=== PATIENT | male | born 1945 | race Caucasian/White ===

== ENCOUNTER 2023-09-15 10:43 | Inpatient (IN) | payer MEDICARE, BC ==
[~2023-09-15] VITALS: Ht 188 cm; Wt 127.0 kg
[2023-09-15] VITALS (7 sets, daily range): BP systolic 98–137; BP diastolic 53–68; TEMP 97.8–98.5; O2SAT 97
[2023-09-15] MEDS ORDERED: IV NORMAL SALINE 1000 ML BAG IV ONE (11:00)
[2023-09-15 11:43] LABS: EOSINOPHILS % (AUTO) 1.8 % (0.0-7.0); LYMPHOCYTES # (AUTO) 2.8 K/uL (0.8-4.8)
[2023-09-15 11:46] LABS: BASOPHILS # (AUTO) 0.3 K/UL (0.0-0.2); BASOPHILS % (AUTO) 0.7 % (0.0-2.0); EOSINOPHILS # (AUTO) 0.8 K/uL (0.0-0.7); MEAN CORPUSCULAR HEMOGLOBIN 29.7 uug (23.8-33.4); MEAN CORPUSCULAR HGB CONC 33 g/dL (32.5-36.3); MEAN CORPUSCULAR VOLUME 89.2 fL (73.0-96.2); MONOCYTES # (AUTO) 19.9 K/uL (0.1-1.30); MONOCYTES % (AUTO) 42.5 % (0.0-11.0); PLATELET COUNT (AUTO) 96 K/uL (152-348); RED CELL DISTRIBUTION WIDTH 18.4 % (12.1-16.2)
[2023-09-15] MEDS ORDERED: LEVO50TA8 PO (11:52)
[2023-09-15] MEDS ORDERED: CAND16TA25 PO (11:52)
[2023-09-15] MEDS ORDERED: BUPR300T52 PO (11:52)
[2023-09-15] MEDS ORDERED: PANT40TA49 PO (11:52)
[2023-09-15] MEDS ORDERED: ALPR0.5T8 PO (11:52)
[2023-09-15] MEDS ORDERED: FURO-152 PO (11:52)
[2023-09-15] MEDS ORDERED: ATOR20TA PO (11:52)
[2023-09-15] MEDS ORDERED: DULO30CA2 PO (11:52)
[2023-09-15] MEDS ORDERED: ATEN50TA PO (11:52)
[2023-09-15 12:09] LABS: ALANINE AMINOTRANSFERASE 17 U/L (16-63); ALBUMIN 3.6 g/dL (3.4-5.0); ALKALINE PHOSPHATASE 51 U/L (50-136); ASPARTATE AMINOTRANSFERASE 29 U/L (15-37); BILIRUBIN,DIRECT 0.1 mg/dL (0.0-0.2); BILIRUBIN,TOTAL 0.8 mg/dL (0.2-1.0); CALCIUM 7.4 mg/dL (8.5-10.1); CARBON DIOXIDE 24 mmol/L (21-32); CHLORIDE 97 mmol/L (98-107); CREATININE 4.9 mg/dL (0.6-1.3); GLUCOSE 89 mg/dL (74-106); NT-PRO BNP 1565 pg/mL (0-125); POTASSIUM 4.4 mmol/L (3.5-5.1); SODIUM SERUM 131 mmol/L (136-145); TOTAL PROTEIN, SERUM 7.1 g/dL (6.4-8.2); UREA NITROGEN, BLOOD 54 mg/dL (7-18)
[2023-09-15 12:17] LABS: DIFFERENTIAL COMMENT 1; HEMATOCRIT 20.8 % (36.7-47.1); HEMOGLOBIN 6.9 g/dL (12.5-16.3); RED BLOOD CELL COUNT(AUTO) 2.34 MIL/uL (4.06-5.63); WHITE BLOOD COUNT (AUTO) 46.8 K/uL (3.6-10.2)
[2023-09-15] MEDS ORDERED: VANCOMYCIN IV 200 ML ONE (12:28)
[2023-09-15] MEDS ORDERED: CEFTRIAXONE /D5W 50ML IVPB **ER PYXIS IV ONE (12:28)
[2023-09-15] MEDS ORDERED: CEFTRIAXONE 1 G in IV DEXTROSE 5% 50 ML IV ONE (12:30)
[2023-09-15] MEDS ORDERED: VANCOMYCIN IV 1,000 MG in IV DEXTROSE 5% 250 ML IV ONE (12:30)
[2023-09-15] MEDS ORDERED: MAGNESIUM OXIDE 400 MG TABLET PO ONE (12:45)
[2023-09-15] MEDS ORDERED: MAGNESIUM OXIDE 400 MG TABLET ONE (13:03)
[2023-09-15] MEDS ORDERED: REMEDY ESSENTIAL ZINC PASTE 113 GM TP PRN (15:30)
[2023-09-15] MEDS ORDERED: ONDANSETRON 4 MG/2 ML VIAL IV PRN (15:30)
[2023-09-15] MEDS ORDERED: ACETAMINOPHEN 325 MG TABLET PO PRN (15:30)
[2023-09-15] MEDS ORDERED: IV NS 1000 ML 1,000 ML IV PRN (15:30)
[2023-09-15 15:45] LABS: *BILIRUBIN,URIN NEGATIVE (NEGATIVE); *BLOOD, URINE 3+ (NEGATIVE); *CLARITY,URINE CLEAR (CLEAR); *COLOR,URINE YELLOW (YELLOW); *KETONES,URINE NEGATIVE (NEGATIVE); *PROTEIN,URINE 1+ (NEGATIVE); *UROBILINOGEN,URINE 0.2 E.U./dl (NORMAL); LEUKOCYTE ESTERASE ,URINE NEGATIVE (NEGATIVE); NITRITE, URINE NEGATIVE (NEGATIVE); UGLUCOSE NEGATIVE (NEGATIVE)
[2023-09-15] MEDS: MAGNESIUM SULFATE/D5W 100 ML IV SCH ×3 (17:47→18:57)
[2023-09-15] MEDS ORDERED: VANCOMYCIN IV 500 MG in IV DEXTROSE 5% 100 ML IV ONE (18:00)
[2023-09-15 18:20] LABS: SQUAMOUS EPITHELIAL CELL,UR FEW /HPF (NONE SEEN); WBC,URINE 0-3 /HPF (0-3)
[2023-09-15 18:21] LABS: BACTERIA,URINE MODERATE /HPF (NONE SEEN)
[2023-09-15 19:30] LABS: LYMPHOCYTES % (MANUAL) 10 % (20-40); MONOCYTES % (MANUAL) 29 % (2-10); NEUTROPHILS % (MANUAL) 61 % (42-75)
[2023-09-15 19:31] LABS: ANISOCYTOSIS 2+; PLATELET ESTIMATE MARKED DECREASED
[2023-09-15] MEDS ORDERED: HOME MED MISCELLANEOUS PO ONE (20:45)
[2023-09-15] MEDS: ATORVASTATIN 20 MG TABLET PO SCH (21:08)
[2023-09-16 00:05] VITALS: BP 133/61; TEMP 98.5; O2SAT 95
[2023-09-16] MEDS: ALPRAZOLAM 0.5 MG TABLET PO PRN (00:42)
[2023-09-16 02:14] LABS: *OCCULT BLOOD STOOL NEGATIVE (NEGATIVE)
[2023-09-16 04:30] VITALS: BP 120/53; TEMP 98; O2SAT 96
[2023-09-16] MEDS: LEVOTHYROXINE SODIUM 50 MCG TABLET PO SCH (06:28)
[2023-09-16 06:51] LABS: BASOPHILS # (AUTO) 0.4 K/UL (0.0-0.2); BASOPHILS % (AUTO) 1.1 % (0.0-2.0); EOSINOPHILS # (AUTO) 0.9 K/uL (0.0-0.7); EOSINOPHILS % (AUTO) 2.6 % (0.0-7.0); LYMPHOCYTES # (AUTO) 2.8 K/uL (0.8-4.8); LYMPHOCYTES % (AUTO) 7.8 % (20.5-51.5); MEAN CORPUSCULAR HEMOGLOBIN 29.7 uug (23.8-33.4); MEAN CORPUSCULAR HGB CONC 33 g/dL (32.5-36.3); MEAN CORPUSCULAR VOLUME 89.7 fL (73.0-96.2); MONOCYTES # (AUTO) 14.5 K/uL (0.1-1.30); MONOCYTES % (AUTO) 40.2 % (0.0-11.0); NEUTROPHILS # (AUTO) 17.3 K/uL (1.8-8.9); NEUTROPHILS % (AUTO) 48.3 % (38.5-71.5); PLATELET COUNT (AUTO) 79 K/uL (152-348); RED CELL DISTRIBUTION WIDTH 17.8 % (12.1-16.2)
[2023-09-16 07:17] LABS: ALANINE AMINOTRANSFERASE 15 U/L (16-63); ALBUMIN 3.4 g/dL (3.4-5.0); ALKALINE PHOSPHATASE 60 U/L (50-136); ASPARTATE AMINOTRANSFERASE 17 U/L (15-37); BILIRUBIN,TOTAL 0.9 mg/dL (0.2-1.0); CARBON DIOXIDE 22 mmol/L (21-32); CHLORIDE 99 mmol/L (98-107); CREATININE 4.7 mg/dL (0.6-1.3); GLUCOSE 95 mg/dL (74-106); PHOSPHOROUS 6.6 mg/dL (2.5-4.9); POTASSIUM 4.6 mmol/L (3.5-5.1); SODIUM SERUM 134 mmol/L (136-145); TOTAL PROTEIN, SERUM 6.9 g/dL (6.4-8.2); UREA NITROGEN, BLOOD 56 mg/dL (7-18)
[2023-09-16 07:27] LABS: CALCIUM 7.4 mg/dL (8.5-10.1)
[2023-09-16] MEDS: NICOTINE 21 MG/24HR PATCH TD SCH (08:08)
[2023-09-16] MEDS ORDERED: [UNRECOGNIZED DRUG - OTHER] PO SCH ×2 (09:00→21:00)
[2023-09-16] MEDS ORDERED: VANCOMYCIN IV 1,000 MG in IV DEXTROSE 5% 250 ML IV ONE ×4 (09:00)
[2023-09-16 09:34] LABS: DIFFERENTIAL COMMENT 1; HEMATOCRIT 20.8 % (36.7-47.1); HEMOGLOBIN 6.9 g/dL (12.5-16.3); RED BLOOD CELL COUNT(AUTO) 2.32 MIL/uL (4.06-5.63); WHITE BLOOD COUNT (AUTO) 35.9 K/uL (3.6-10.2)
[2023-09-16 09:37] LABS: LYMPHOCYTES % (MANUAL) 0 % (20-40); NEUTROPHILS % (MANUAL) 0 % (42-75)
[2023-09-16] MEDS: CEFTRIAXONE 2 G in IV DEXTROSE 5% 100 ML IV SCH (11:03)
[2023-09-16 11:55] VITALS: BP_SYST 103; BP_SYST 118; BP_DIAS 50; BP_DIAS 55; TEMP 98; O2SAT 96; O2SAT 99
[2023-09-16] MEDS ORDERED: CEFTRIAXONE 1 G in IV DEXTROSE 5% 50 ML IV SCH (12:00)
[2023-09-16] MEDS ORDERED: DULO60CA45 PO (14:22)
[2023-09-16] MEDS ORDERED: LEVO5TAB29 PO (14:24)
[2023-09-16] MEDS ORDERED: ALLO100T56 PO (14:25)
[2023-09-16] MEDS ORDERED: FLUT1DIS28 IH (14:25)
[2023-09-16] MEDS ORDERED: ZOLP5TAB2 PO (14:26)
[2023-09-16 15:42] VITALS: BP 105/53; TEMP 98; O2SAT 99
[2023-09-16] MEDS ORDERED: LOPERAMIDE HCL 2 MG CAPSULE PO PRN (16:30)
[2023-09-16] MEDS ORDERED: LOPERAMIDE HCL 2 MG CAPSULE PO ONE (16:30)
[2023-09-16] MEDS ORDERED: ZOLPIDEM 5 MG TABLET PO PRN (17:45)
[2023-09-16 20:16] VITALS: BP 115/62; TEMP 97.7; O2SAT 97
[2023-09-16 20:30] LABS: *CREATININE,URINE 144.7 mg/dL (30-125); *URINE TOTAL PROTEIN RANDOM 148.4 mg/dL (<150/24HR)
[2023-09-16] MEDS: ATORVASTATIN 20 MG TABLET PO SCH (20:48)
[2023-09-16 20:54] LABS: *BILIRUBIN,URIN NEGATIVE (NEGATIVE); *BLOOD, URINE 3+ (NEGATIVE); *COLOR,URINE DARK YELLOW (YELLOW); *KETONES,URINE NEGATIVE (NEGATIVE); *PROTEIN,URINE 2+ (NEGATIVE); *UROBILINOGEN,URINE 0.2 E.U./dl (NORMAL); LEUKOCYTE ESTERASE ,URINE NEGATIVE (NEGATIVE); NITRITE, URINE NEGATIVE (NEGATIVE); UGLUCOSE NEGATIVE (NEGATIVE)
[2023-09-16 20:58] LABS: *CLARITY,URINE TURBID (CLEAR)
[2023-09-16 21:05] LABS: BACTERIA,URINE FEW /HPF (NONE SEEN); RBC,URINE TNTC /HPF (0-3); WBC,URINE 0-3 /HPF (0-3)
[2023-09-16 21:06] LABS: SQUAMOUS EPITHELIAL CELL,UR FEW /HPF (NONE SEEN); URINE AMORPHOUS URATE MODERATE /HPF
[2023-09-17 00:17] VITALS: BP 129/68; TEMP 97.7; O2SAT 97
[2023-09-17 04:00] VITALS: BP 123/50; TEMP 97.8; O2SAT 98
[2023-09-17 06:12] LABS: BASOPHILS # (AUTO) 0.4 K/UL (0.0-0.2); BASOPHILS % (AUTO) 1.1 % (0.0-2.0); EOSINOPHILS # (AUTO) 0.9 K/uL (0.0-0.7); EOSINOPHILS % (AUTO) 2.5 % (0.0-7.0); HEMATOCRIT 21.3 % (36.7-47.1); LYMPHOCYTES # (AUTO) 3.3 K/uL (0.8-4.8); LYMPHOCYTES % (AUTO) 9.4 % (20.5-51.5); MEAN CORPUSCULAR HEMOGLOBIN 29.8 uug (23.8-33.4); MEAN CORPUSCULAR HGB CONC 33 g/dL (32.5-36.3); MEAN CORPUSCULAR VOLUME 89.2 fL (73.0-96.2); MONOCYTES # (AUTO) 12.8 K/uL (0.1-1.30); MONOCYTES % (AUTO) 36.7 % (0.0-11.0); NEUTROPHILS # (AUTO) 17.6 K/uL (1.8-8.9); NEUTROPHILS % (AUTO) 50.3 % (38.5-71.5); PLATELET COUNT (AUTO) 76 K/uL (152-348)
[2023-09-17] MEDS: LEVOTHYROXINE SODIUM 50 MCG TABLET PO SCH (06:12)
[2023-09-17 06:27] LABS: DIFFERENTIAL COMMENT 1; HEMOGLOBIN 7.1 g/dL (12.5-16.3); RED BLOOD CELL COUNT(AUTO) 2.39 MIL/uL (4.06-5.63); WHITE BLOOD COUNT (AUTO) 34.9 K/uL (3.6-10.2)
[2023-09-17 06:30] LABS: ALANINE AMINOTRANSFERASE 20 U/L (16-63); ALBUMIN 3.5 g/dL (3.4-5.0); ALKALINE PHOSPHATASE 75 U/L (50-136); ASPARTATE AMINOTRANSFERASE 19 U/L (15-37); BILIRUBIN,TOTAL 0.9 mg/dL (0.2-1.0); CALCIUM 7.6 mg/dL (8.5-10.1); CARBON DIOXIDE 24 mmol/L (21-32); CHLORIDE 102 mmol/L (98-107); CREATINE KINASE, TOTAL 119 U/L (39-308); CREATININE 3.5 mg/dL (0.6-1.3); GLUCOSE 98 mg/dL (74-106); LACTATE DEHYDROGENASE 487 U/L (85-227); MAGNESIUM 1.6 mg/dL (1.8-2.4); PHOSPHOROUS 5.4 mg/dL (2.5-4.9); POTASSIUM 4.6 mmol/L (3.5-5.1); SODIUM SERUM 136 mmol/L (136-145); TOTAL PROTEIN, SERUM 7.3 g/dL (6.4-8.2); UREA NITROGEN, BLOOD 54 mg/dL (7-18); VANCOMYCIN,RANDOM 14.2 ug/mL (20.0-30.0)
[2023-09-17 06:54] LABS: IRON, SERUM 40 ug/dL (50-175)
[2023-09-17 08:00] VITALS: BP 121/56; TEMP 97.7
[2023-09-17] MEDS ORDERED: VANCOMYCIN IV 1,250 MG in IV DEXTROSE 5% 250 ML IV ONE (08:00)
[2023-09-17] MEDS: FLUTICASONE/VILANTEROL 1 EACH BLST.W.DEV INH SCH (08:56)
[2023-09-17] MEDS: DULOXETINE 30 MG CAPSULE.DR PO SCH (08:57)
[2023-09-17] MEDS: MAGNESIUM SULFATE/D5W 100 ML IV SCH ×2 (08:57→09:35)
[2023-09-17] MEDS: NICOTINE 21 MG/24HR PATCH TD SCH (08:58)
[2023-09-17] MEDS: ALLOPURINOL 100 MG TABLET PO SCH (08:58)
[2023-09-17] MEDS ORDERED: FLUTICASONE/SALMETEROL 250/50 INHALER IH SCH (09:00)
[2023-09-17] MEDS ORDERED: VANCOMYCIN IV 1,000 MG in IV DEXTROSE 5% 250 ML IV ONE (09:00)
[2023-09-17] MEDS: DULOXETINE 60 MG CAPSULE.DR PO SCH (09:01)
[2023-09-17 09:05] LABS: FERRITIN 861 ng/mL (26-388)
[2023-09-17 09:17] LABS: THYROID STIMULATING HORMONE 2.104 mIU/mL (0.358-3.740)
[2023-09-17 09:25] LABS: *RHEUMATOID FACTOR SCREEN NEGATIVE (NEGATIVE)
[2023-09-17 12:00] VITALS: BP 125/60; TEMP 98.1; O2SAT 97
[2023-09-17] MEDS: CEFTRIAXONE 2 G in IV DEXTROSE 5% 100 ML IV SCH (12:10)
[2023-09-17 15:32] LABS: C-REACTIVE PROTEIN 4.95 mg/dL (0.00-0.30)
[2023-09-17 16:00] VITALS: BP 123/65; TEMP 98; O2SAT 98
[2023-09-17 20:21] VITALS: BP 139/68; TEMP 98.1; O2SAT 99
[2023-09-17] MEDS: ATORVASTATIN 20 MG TABLET PO SCH (20:33)
[2023-09-17 23:18] LABS: ANISOCYTOSIS 1+; BAND % (MANUAL) 2 % (0-10); EOSINOPHILS % (MANUAL) 2 % (0-8); LYMPHOCYTES % (MANUAL) 16 % (20-40); METAMYELOCYTES % 2 % (0-1); MONOCYTES % (MANUAL) 32 % (2-10); MYELOCYTES % 3 % (0-0); NEUTROPHILS % (MANUAL) 43 % (42-75); PLATELET ESTIMATE MARKED DECREASED
[2023-09-18 00:16] VITALS: BP 118/63; TEMP 98.2; O2SAT 97
[2023-09-18 04:38] VITALS: BP 121/58; TEMP 98.3; O2SAT 96
[2023-09-18] MEDS: LEVOTHYROXINE SODIUM 50 MCG TABLET PO SCH (06:32)
[2023-09-18] MEDS ORDERED: VANCOMYCIN IV 1,000 MG in IV DEXTROSE 5% 250 ML IV ONE (09:00)
[2023-09-18 09:14] LABS: CARBON DIOXIDE 23 mmol/L (21-32); CHLORIDE 101 mmol/L (98-107); CREATININE 2.7 mg/dL (0.6-1.3); GLUCOSE 101 mg/dL (74-106); POTASSIUM 4.5 mmol/L (3.5-5.1); SODIUM SERUM 135 mmol/L (136-145); UREA NITROGEN, BLOOD 44 mg/dL (7-18)
[2023-09-18] MEDS: FLUTICASONE/VILANTEROL 1 EACH BLST.W.DEV INH SCH (10:08)
[2023-09-18] MEDS: DULOXETINE 30 MG CAPSULE.DR PO SCH (10:09)
[2023-09-18] MEDS: DULOXETINE 60 MG CAPSULE.DR PO SCH (10:09)
[2023-09-18] MEDS: NICOTINE 21 MG/24HR PATCH TD SCH (10:10)
[2023-09-18] MEDS: ALLOPURINOL 100 MG TABLET PO SCH (10:10)
[2023-09-18 10:19] LABS: BASOPHILS # (AUTO) 0.4 K/UL (0.0-0.2); BASOPHILS % (AUTO) 0.8 % (0.0-2.0); EOSINOPHILS # (AUTO) 1.2 K/uL (0.0-0.7); EOSINOPHILS % (AUTO) 2.4 % (0.0-7.0); HEMATOCRIT 24.1 % (36.7-47.1); LYMPHOCYTES # (AUTO) 1.7 K/uL (0.8-4.8); LYMPHOCYTES % (AUTO) 3.5 % (20.5-51.5); MEAN CORPUSCULAR HGB CONC 33 g/dL (32.5-36.3); MONOCYTES # (AUTO) 18.7 K/uL (0.1-1.30); MONOCYTES % (AUTO) 39.8 % (0.0-11.0); NEUTROPHILS # (AUTO) 25.1 K/uL (1.8-8.9); NEUTROPHILS % (AUTO) 53.5 % (38.5-71.5); PLATELET COUNT (AUTO) 85 K/uL (152-348); RED BLOOD CELL COUNT(AUTO) 2.67 MIL/uL (4.06-5.63); RED CELL DISTRIBUTION WIDTH 17.9 % (12.1-16.2)
[2023-09-18 11:36] VITALS: BP 105/57; TEMP 97.9; O2SAT 94
[2023-09-18] MEDS: CEFTRIAXONE 2 G in IV DEXTROSE 5% 100 ML IV SCH (12:26)
[2023-09-18 12:31] LABS: DIFFERENTIAL COMMENT 1
[2023-09-18 15:30] LABS: BAND % (MANUAL) 3 % (0-10); LYMPHOCYTES % (MANUAL) 9 % (20-40); NEUTROPHILS % (MANUAL) 53 % (42-75)
[2023-09-18 15:31] LABS: EOSINOPHILS % (MANUAL) 3 % (0-8); MONOCYTES % (MANUAL) 32 % (2-10)
[2023-09-18 15:32] LABS: PLATELET ESTIMATE DECREASED
[2023-09-18 15:49] VITALS: BP 137/67; TEMP 97.3; O2SAT 97
[2023-09-18 20:00] VITALS: BP 128/66; TEMP 98; O2SAT 98
[2023-09-18] MEDS: ATORVASTATIN 20 MG TABLET PO SCH (21:08)
[2023-09-18] MEDS: ALPRAZOLAM 0.5 MG TABLET PO PRN (21:11)
[2023-09-19] VITALS (10 sets, daily range): BP systolic 121–145; BP diastolic 58–87; TEMP 98–98.7; O2SAT 95–100
[2023-09-19] MEDS: LEVOTHYROXINE SODIUM 50 MCG TABLET PO SCH (06:38)
[2023-09-19 07:35] LABS: BASOPHILS # (AUTO) 0.4 K/UL (0.0-0.2); BASOPHILS % (AUTO) 0.9 % (0.0-2.0); EOSINOPHILS # (AUTO) 0.6 K/uL (0.0-0.7); EOSINOPHILS % (AUTO) 1.5 % (0.0-7.0); HEMATOCRIT 22.6 % (36.7-47.1); HEMOGLOBIN 7.6 g/dL (12.5-16.3); LYMPHOCYTES # (AUTO) 1.7 K/uL (0.8-4.8); LYMPHOCYTES % (AUTO) 4.4 % (20.5-51.5); MEAN CORPUSCULAR HEMOGLOBIN 29.8 uug (23.8-33.4); MEAN CORPUSCULAR HGB CONC 34 g/dL (32.5-36.3); MEAN CORPUSCULAR VOLUME 88.9 fL (73.0-96.2); MONOCYTES # (AUTO) 16.9 K/uL (0.1-1.30); MONOCYTES % (AUTO) 42.9 % (0.0-11.0); NEUTROPHILS # (AUTO) 19.8 K/uL (1.8-8.9); NEUTROPHILS % (AUTO) 50.3 % (38.5-71.5); PLATELET COUNT (AUTO) 62 K/uL (152-348); RED BLOOD CELL COUNT(AUTO) 2.54 MIL/uL (4.06-5.63)
[2023-09-19 08:04] LABS: DIFFERENTIAL COMMENT 1; WHITE BLOOD COUNT (AUTO) 39.3 K/uL (3.6-10.2)
[2023-09-19 08:07] LABS: *IMMUNOGLOBULIN G, SERUM 1314 mg/dL (603-1613); IMMUNOGLOBULIN A, SERUM 301 mg/dL (61-437); IMMUNOGLOBULIN M, SERUM 47 mg/dL (15-143)
[2023-09-19] MEDS: NICOTINE 21 MG/24HR PATCH TD SCH (08:08)
[2023-09-19] MEDS: DULOXETINE 60 MG CAPSULE.DR PO SCH (08:09)
[2023-09-19] MEDS: DULOXETINE 30 MG CAPSULE.DR PO SCH (08:09)
[2023-09-19] MEDS: ALLOPURINOL 100 MG TABLET PO SCH (08:09)
[2023-09-19 08:10] LABS: CALCIUM 8.1 mg/dL (8.5-10.1); CARBON DIOXIDE 27 mmol/L (21-32); CHLORIDE 99 mmol/L (98-107); CREATININE 2.6 mg/dL (0.6-1.3); GLUCOSE 108 mg/dL (74-106); POTASSIUM 4.9 mmol/L (3.5-5.1); SODIUM SERUM 133 mmol/L (136-145); UREA NITROGEN, BLOOD 31 mg/dL (7-18); VANCOMYCIN,RANDOM 18.3 ug/mL (20.0-30.0)
[2023-09-19] MEDS: FLUTICASONE/VILANTEROL 1 EACH BLST.W.DEV INH SCH (08:42)
[2023-09-19] MEDS: CEFTRIAXONE 2 G in IV DEXTROSE 5% 100 ML IV SCH (11:03)
[2023-09-19 11:11] LABS: *ANTI-SCLERODERMA-70 AB <0.2 AI (0.0-0.9); *RNP ANTIBODIES <0.2 AI (0.0-0.9); *SJOGREN'S ANTI-SS-A <0.2 AI (0.0-0.9); *SJOGREN'S ANTI-SS-B <0.2 AI (0.0-0.9); *SMITH ANTIBODIES <0.2 AI (0.0-0.9); ANTI-DNA(DS) AB, QN <1 IU/mL (0-9); ANTI-NUCLEAR AB DIRECT Negative (Negative)
[2023-09-19 11:22] LABS: ANISOCYTOSIS 1+; BAND % (MANUAL) 3 % (0-10); EOSINOPHILS % (MANUAL) 5 % (0-8); LYMPHOCYTES % (MANUAL) 9 % (20-40); METAMYELOCYTES % 3 % (0-1); MONOCYTES % (MANUAL) 35 % (2-10); MYELOCYTES % 2 % (0-0); NEUTROPHILS % (MANUAL) 43 % (42-75); PLATELET ESTIMATE ADEQUATE
[2023-09-19 15:10] LABS: FREE KAPPA LT CHAINS SERUM 62.9 mg/L (3.3-19.4); FREE LAMBDA LT CHAIN SERUM 34.8 mg/L (5.7-26.3); KAPPA/LAMBDA RATIO SERUM 1.81 (0.26-1.65)
[2023-09-20 01:06] LABS: PTH, INTACT 106 pg/mL (15-65)
[2023-09-20 03:09] LABS: HEPATITIS B SURFACE AB, QUAL Non Reactive (.); HEPATITIS B SURFACE AG Negative (Negative); HEPATITIS C VIRUS ANTIBODY Non Reactive (Non Reactive)
[2023-09-20 08:07] LABS: ALBUMIN 3.2 g/dL (2.9-4.4); ALPHA-1-GLOBULIN 0.4 g/dL (0.0-0.4); ALPHA-2-GLOBULIN 0.8 g/dL (0.4-1.0); BETA GLOBULIN 0.9 g/dL (0.7-1.3); GAMMA GLOBULIN 1.2 g/dL (0.4-1.8); GLOBULIN, TOTAL 3.2 g/dL (2.2-3.9); M-SPIKE Not Observed g/dL (Not Observed)
== END 2023-09-19 18:15 | disposition home health service (06) | DRG 812 ==
LOC: ER 10:43 → TELE3 16:28 → MEDSURG3 09-17 08:37 → TELE3 09-17 19:07
PROVIDERS: ADMIT Internal Medicine; ATTEND Internal Medicine
PROC: 30233N1 Transfusion of Nonautologous Red Blood Cells into Peripheral Vein, Percutaneous Approach (ICD-10-PCS; principal; 2023-09-15)
DX: D62 Acute posthemorrhagic anemia (principal); N17.9 Acute kidney failure, unspecified; D75.81 Myelofibrosis; E87.1 Hypo-osmolality and hyponatremia; I13.0 Hypertensive heart and chronic kidney disease with heart failure and stage 1 through stage 4 chronic kidney disease, or unspecified chronic kidney disease; I50.32 Chronic diastolic (congestive) heart failure; L03.115 Cellulitis of right lower limb; E83.42 Hypomagnesemia; M79.7 Fibromyalgia; S80.01XA Contusion of right knee, initial encounter; W19.XXXA Unspecified fall, initial encounter; Y92.89 Other specified places as the place of occurrence of the external cause; E78.5 Hyperlipidemia, unspecified; L72.3 Sebaceous cyst; K57.30 Diverticulosis of large intestine without perforation or abscess without bleeding; Z79.899 Other long term (current) drug therapy; Z79.890 Hormone replacement therapy; Z88.0 Allergy status to penicillin; R00.1 Bradycardia, unspecified; S90.415A Abrasion, left lesser toe(s), initial encounter; R60.0 Localized edema; D72.821 Monocytosis (symptomatic); D69.6 Thrombocytopenia, unspecified; R13.10 Dysphagia, unspecified; N18.9 Chronic kidney disease, unspecified; Z79.51 Long term (current) use of inhaled steroids; Z87.891 Personal history of nicotine dependence; E86.1 Hypovolemia; R11.10 Vomiting, unspecified
CPT/HCPCS: 36415; 70030-TC; 70450; 71045; 71250; 73590; 82746; 82747; 82784; 83550; 83605; 83615; 83735; 83970; 84100; 84155; 84165; 84300; 84443; 84484; 85014; 85025; 85730; 86038; 86140; 86334; 86430; 86706; 86803; 86850; 86900; 86901; 86920; 87040; 87340; 88185; 93005; 93307; A4606; A4663; A6209; A6213; G0378; J0696; J3370; J3475; J7040; J7050; J8499; P9016

== ENCOUNTER 2024-01-09 00:34 | Inpatient (IN) | payer MEDICARE, BC ==
[~2024-01-09] VITALS: Ht 185.4 cm; Wt 113.4 kg
[2024-01-09] MEDS: IV NORMAL SALINE 500 ML BAG IV ONE (00:15)
[~2024-01-09 00:34] MED LIST: ALLO100T56 PO; ALPR0.5T8 PO; ATEN50TA PO; ATOR20TA PO; BUPR300T52 PO; CAND16TA25 PO; DULO30CA2 PO; DULO60CA45 PO; FLUT1DIS28 IH; LEVO5TAB29 PO; PANT40TA49 PO; ZOLP5TAB2 PO
[2024-01-09 01:01] LABS: HEMOGLOBIN 8.2 g/dL (12.5-16.3); LYMPHOCYTES # (AUTO) 2.2 K/uL (0.8-4.8); MEAN CORPUSCULAR VOLUME 86.5 fL (73.0-96.2); PLATELET COUNT (AUTO) 60 K/uL (152-348); RED CELL DISTRIBUTION WIDTH 20.1 % (12.1-16.2)
[2024-01-09 01:03] LABS: BASOPHILS # (AUTO) 0.2 K/UL (0.0-0.2); BASOPHILS % (AUTO) 0.7 % (0.0-2.0); EOSINOPHILS # (AUTO) 0.6 K/uL (0.0-0.7); EOSINOPHILS % (AUTO) 1.9 % (0.0-7.0); HEMATOCRIT 25.4 % (36.7-47.1); LYMPHOCYTES % (AUTO) 6.6 % (20.5-51.5); MEAN CORPUSCULAR HEMOGLOBIN 27.8 uug (23.8-33.4); MEAN CORPUSCULAR HGB CONC 32 g/dL (32.5-36.3); MONOCYTES # (AUTO) 10.9 K/uL (0.1-1.30); MONOCYTES % (AUTO) 32.9 % (0.0-11.0); NEUTROPHILS # (AUTO) 19.2 K/uL (1.8-8.9); NEUTROPHILS % (AUTO) 57.9 % (38.5-71.5); RED BLOOD CELL COUNT(AUTO) 2.94 MIL/uL (4.06-5.63)
[2024-01-09 01:08] LABS: DIFFERENTIAL COMMENT 1
[2024-01-09 01:12] LABS: ALBUMIN 2.5 g/dL (3.4-5.0); CALCIUM 6.7 mg/dL (8.5-10.1); CARBON DIOXIDE 23 mmol/L (21-32); CHLORIDE 106 mmol/L (98-107); CREATININE 6.9 mg/dL (0.6-1.3); GLUCOSE 96 mg/dL (74-106); POTASSIUM 4.9 mmol/L (3.5-5.1); SODIUM SERUM 138 mmol/L (136-145); UREA NITROGEN, BLOOD 75 mg/dL (7-18)
[2024-01-09] MEDS ORDERED: GLUCAGON,HUMAN RECOMBINANT 1 MG VIAL ONE (01:32)
[2024-01-09] MEDS: GLUCAGON,HUMAN RECOMBINANT 1 MG VIAL IVP ONE (01:45)
[2024-01-09] MEDS ORDERED: ONDANSETRON 4 MG/2 ML VIAL ONE (02:11)
[2024-01-09] MEDS: ONDANSETRON 4 MG/2 ML VIAL IV ONE (02:15)
[2024-01-09 02:18] LABS: ALANINE AMINOTRANSFERASE 22 U/L (16-63); ALKALINE PHOSPHATASE 43 U/L (50-136); ASPARTATE AMINOTRANSFERASE 6 U/L (15-37); BILIRUBIN,DIRECT 0.1 mg/dL (0.0-0.2); BILIRUBIN,TOTAL 0.4 mg/dL (0.2-1.0); TOTAL PROTEIN, SERUM 6.9 g/dL (6.4-8.2)
[2024-01-09 03:44] LABS: BAND % (MANUAL) 6 % (0-10); LYMPHOCYTES % (MANUAL) 20 % (20-40); NEUTROPHILS % (MANUAL) 60 % (42-75)
[2024-01-09 03:45] LABS: ANISOCYTOSIS 1+; EOSINOPHILS % (MANUAL) 2 % (0-8); MONOCYTES % (MANUAL) 18 % (2-10); PLATELET ESTIMATE DECREASED
[2024-01-09 04:15] VITALS: BP 89/44; TEMP 97.7; O2SAT 97
[2024-01-09] MEDS ORDERED: MAGNESIUM HYDROXIDE 30 ML LIQUID UDC PO PRN (04:15)
[2024-01-09] MEDS ORDERED: ZOLPIDEM 5 MG TABLET PO PRN (04:15)
[2024-01-09] MEDS ORDERED: REMEDY ESSENTIAL ZINC PASTE 113 GM TP PRN (04:15)
[2024-01-09] MEDS ORDERED: ALPRAZOLAM 0.5 MG TABLET PO PRN ×2 (04:15→11:31)
[2024-01-09] MEDS ORDERED: ONDANSETRON 4 MG/2 ML VIAL IV PRN (04:15)
[2024-01-09] MEDS ORDERED: ACETAMINOPHEN 325 MG TABLET PO PRN (04:15)
[2024-01-09] MEDS ORDERED: ENOXAPARIN SODIUM 40 MG/0.4 ML DISP.SYRIN SQ SCH (04:15)
[2024-01-09] MEDS: LOPERAMIDE HCL 2 MG CAPSULE PO PRN (06:13)
[2024-01-09 07:35] LABS: BASOPHILS # (AUTO) 0.3 K/UL (0.0-0.2); BASOPHILS % (AUTO) 0.7 % (0.0-2.0); EOSINOPHILS # (AUTO) 0.7 K/uL (0.0-0.7); EOSINOPHILS % (AUTO) 1.7 % (0.0-7.0); HEMATOCRIT 27.6 % (36.7-47.1); HEMOGLOBIN 8.8 g/dL (12.5-16.3); LYMPHOCYTES # (AUTO) 2.3 K/uL (0.8-4.8); LYMPHOCYTES % (AUTO) 6.1 % (20.5-51.5); MEAN CORPUSCULAR HEMOGLOBIN 27.7 uug (23.8-33.4); MEAN CORPUSCULAR HGB CONC 32 g/dL (32.5-36.3); MEAN CORPUSCULAR VOLUME 86.8 fL (73.0-96.2); MONOCYTES % (AUTO) 31.7 % (0.0-11.0); NEUTROPHILS # (AUTO) 22.7 K/uL (1.8-8.9); NEUTROPHILS % (AUTO) 59.8 % (38.5-71.5); PLATELET COUNT (AUTO) 72 K/uL (152-348); RED BLOOD CELL COUNT(AUTO) 3.19 MIL/uL (4.06-5.63); RED CELL DISTRIBUTION WIDTH 20.3 % (12.1-16.2)
[2024-01-09 07:42] LABS: DIFFERENTIAL COMMENT 1
[2024-01-09 08:00] VITALS: BP 111/70; TEMP 97.5; O2SAT 96
[2024-01-09 08:01] LABS: CALCIUM 6.5 mg/dL (8.5-10.1); CARBON DIOXIDE 21 mmol/L (21-32); CHLORIDE 106 mmol/L (98-107); CREATININE 6.5 mg/dL (0.6-1.3); GLUCOSE 96 mg/dL (74-106); POTASSIUM 5.3 mmol/L (3.5-5.1); SODIUM SERUM 138 mmol/L (136-145)
[2024-01-09] MEDS: ALLOPURINOL 100 MG TABLET PO SCH (08:05)
[2024-01-09] MEDS: PANTOPRAZOLE SODIUM 40 MG VIAL IV SCH (08:05)
[2024-01-09 08:14] LABS: MAGNESIUM 1.1 mg/dL (1.8-2.4); PHOSPHOROUS 8.3 mg/dL (2.5-4.9); UREA NITROGEN, BLOOD 80 mg/dL (7-18)
[2024-01-09] MEDS ORDERED: FLUTICASONE/VILANTEROL 1 EACH BLST.W.DEV INH SCH (09:00)
[2024-01-09] MEDS ORDERED: CANDESARTAN CILEXETIL 16 MG TABLET PO SCH (09:00)
[2024-01-09] MEDS ORDERED: DULOXETINE 30 MG CAPSULE.DR PO SCH (09:00)
[2024-01-09] MEDS ORDERED: LOSARTAN POTASSIUM 50 MG TABLET PO SCH (09:00)
[2024-01-09] MEDS ORDERED: DULOXETINE 60 MG CAPSULE.DR PO SCH (09:00)
[2024-01-09] MEDS ORDERED: LEVOCETIRIZINE DIHYDROCHLORIDE PO SCH (09:00)
[2024-01-09] MEDS ORDERED: ATENOLOL 50 MG TABLET PO SCH ×2 (09:00)
[2024-01-09] MEDS ORDERED: HYDR500C PO (11:42)
[2024-01-09] MEDS ORDERED: TADA5TAB2 PO (11:43)
[2024-01-09] MEDS ORDERED: METO-295 PO (11:44)
[2024-01-09] MEDS: MAGNESIUM SULFATE/D5W 100 ML IV SCH (11:46)
[2024-01-09 12:00] VITALS: BP 90/50; TEMP 97.6; O2SAT 97
[2024-01-09] MEDS: buPROPion XL 150 MG TAB.SR.24H PO SCH (12:46)
[2024-01-09] MEDS: DULOXETINE 30 MG CAPSULE.DR PO SCH (12:46)
[2024-01-09] MEDS: HYDROXYUREA 500 MG CAPSULE PO SCH (12:46)
[2024-01-09] MEDS: FLUTICASONE/VILANTEROL 1 EACH BLST.W.DEV INH SCH (12:50)
[2024-01-09 17:01] LABS: BAND % (MANUAL) 21 % (0-10); LYMPHOCYTES % (MANUAL) 10 % (20-40); METAMYELOCYTES % 5 % (0-1); MONOCYTES % (MANUAL) 17 % (2-10); NEUTROPHILS % (MANUAL) 47 % (42-75)
[2024-01-09 17:02] LABS: ANISOCYTOSIS 2+; PLATELET ESTIMATE DECREASED
[2024-01-09] MEDS ORDERED: ATORVASTATIN 20 MG TABLET PO SCH (21:00)
== END 2024-01-09 14:40 | disposition home or self-care (01) | DRG 917 ==
LOC: ER 00:36 → TELE3 02:40
PROVIDERS: ADMIT Nurse Practitioner Family; ATTEND Internal Medicine
DX: T44.7X1A Poisoning by beta-adrenoreceptor antagonists, accidental (unintentional), initial encounter (principal); N18.6 End stage renal disease; D75.81 Myelofibrosis; N17.9 Acute kidney failure, unspecified; I12.0 Hypertensive chronic kidney disease with stage 5 chronic kidney disease or end stage renal disease; E44.0 Moderate protein-calorie malnutrition; R55 Syncope and collapse; I95.2 Hypotension due to drugs; Y92.009 Unspecified place in unspecified non-institutional (private) residence as the place of occurrence of the external cause; Z88.0 Allergy status to penicillin; D63.1 Anemia in chronic kidney disease; E03.9 Hypothyroidism, unspecified; Z79.890 Hormone replacement therapy; F32.A Depression, unspecified; Z79.899 Other long term (current) drug therapy; Z99.2 Dependence on renal dialysis; E78.5 Hyperlipidemia, unspecified; E87.5 Hyperkalemia; E66.9 Obesity, unspecified; Z68.33 Body mass index [BMI] 33.0-33.9, adult; L30.9 Dermatitis, unspecified; F41.9 Anxiety disorder, unspecified; I25.10 Atherosclerotic heart disease of native coronary artery without angina pectoris; Z87.891 Personal history of nicotine dependence; I48.0 Paroxysmal atrial fibrillation
CPT/HCPCS: 36415; 70030-TC; 71045; 83605; 83735; 84100; 85025; 87040; 93005; C9113; G0378; J1610; J2405; J3475; J8499

== ENCOUNTER 2024-02-20 23:36 | Inpatient (IN) | payer MEDICARE, BC ==
[~2024-02-20] VITALS: Ht 185.4 cm; Wt 113.4 kg
[~2024-02-20 23:36] MED LIST changes: +HYDR500C PO; -LEVO5TAB29 PO; +METO-295 PO; +TADA5TAB2 PO; -ZOLP5TAB2 PO
[2024-02-20] MEDS ORDERED: SILVER NITRATE APPLICATOR STICK EACH TP ONE (23:47)
[2024-02-20] MEDS ORDERED: LIDOCAINE VISCUS 2% 15 ML UDC ONE (23:47)
[2024-02-20] MEDS ORDERED: OXYMETAZOLINE NASAL 0.05% 15 ML SPRAY NS ONE (23:51)
[2024-02-20] MEDS ORDERED: LIDOCAINE 4% TOPICAL 50 ML BOTTLE ONE (23:55)
[2024-02-21] MEDS: SILVER NITRATE APPLICATOR STICK EACH TP ONE (00:01)
[2024-02-21] MEDS: OXYMETAZOLINE NASAL 0.05% 15 ML SPRAY NS ONE ×2 (00:01→05:19)
[2024-02-21] MEDS: LIDOCAINE VISCUS 2% 15 ML UDC MM ONE (00:01)
[2024-02-21] MEDS: LIDOCAINE 4% TOPICAL 50 ML BOTTLE TP ONE (00:45)
[2024-02-21 02:04] LABS: BASOPHILS # (AUTO) 0.3 K/UL (0.0-0.2); BASOPHILS % (AUTO) 1.1 % (0.0-2.0); EOSINOPHILS # (AUTO) 0.2 K/uL (0.0-0.7); EOSINOPHILS % (AUTO) 0.7 % (0.0-7.0); HEMATOCRIT 26.3 % (36.7-47.1); HEMOGLOBIN 8.3 g/dL (12.5-16.3); LYMPHOCYTES # (AUTO) 1.7 K/uL (0.8-4.8); LYMPHOCYTES % (AUTO) 5.5 % (20.5-51.5); MEAN CORPUSCULAR HEMOGLOBIN 28.5 uug (23.8-33.4); MEAN CORPUSCULAR HGB CONC 32 g/dL (32.5-36.3); MEAN CORPUSCULAR VOLUME 90.3 fL (73.0-96.2); MONOCYTES # (AUTO) 10.4 K/uL (0.1-1.30); MONOCYTES % (AUTO) 32.9 % (0.0-11.0); NEUTROPHILS # (AUTO) 18.9 K/uL (1.8-8.9); NEUTROPHILS % (AUTO) 59.8 % (38.5-71.5); PLATELET COUNT (AUTO) 91 K/uL (152-348); RED BLOOD CELL COUNT(AUTO) 2.91 MIL/uL (4.06-5.63); RED CELL DISTRIBUTION WIDTH 21.2 % (12.1-16.2)
[2024-02-21 02:05] LABS: DIFFERENTIAL COMMENT 1; WHITE BLOOD COUNT (AUTO) 31.6 K/uL (3.6-10.2)
[2024-02-21 02:13] LABS: CALCIUM 8.1 mg/dL (8.5-10.1); CARBON DIOXIDE 22 mmol/L (21-32); CHLORIDE 99 mmol/L (98-107); CREATININE 7.4 mg/dL (0.6-1.3); GLUCOSE 93 mg/dL (74-106); POTASSIUM 4.7 mmol/L (3.5-5.1); SODIUM SERUM 134 mmol/L (136-145); UREA NITROGEN, BLOOD 62 mg/dL (7-18)
[2024-02-21 02:25] LABS: ALANINE AMINOTRANSFERASE 20 U/L (16-63); ALBUMIN 3.1 g/dL (3.4-5.0); ALKALINE PHOSPHATASE 75 U/L (50-136); ASPARTATE AMINOTRANSFERASE 11 U/L (15-37); BILIRUBIN,DIRECT 0.1 mg/dL (0.0-0.2); BILIRUBIN,TOTAL 0.4 mg/dL (0.2-1.0); TOTAL PROTEIN, SERUM 9.7 g/dL (6.4-8.2)
[2024-02-21 02:28] LABS: MAGNESIUM 1.5 mg/dL (1.8-2.4); PHOSPHOROUS 6.4 mg/dL (2.5-4.9)
[2024-02-21 02:55] LABS: LYMPHOCYTES % (MANUAL) 5 % (20-40); METAMYELOCYTES % 1 % (0-1); MONOCYTES % (MANUAL) 36 % (2-10); MYELOCYTES % 1 % (0-0); NEUTROPHILS % (MANUAL) 57 % (42-75)
[2024-02-21 02:56] LABS: ANISOCYTOSIS 1+; PLATELET ESTIMATE MARKED DECREASED
[2024-02-21] MEDS ORDERED: CLINDAMYCIN 900MG/D5W 100ML IVPB **ER PYXIS ONLY IJ ONE (03:29)
[2024-02-21] MEDS ORDERED: MAGNESIUM HYDROXIDE 30 ML LIQUID UDC PO PRN (03:30)
[2024-02-21] MEDS ORDERED: REMEDY ESSENTIAL ZINC PASTE 113 GM TP PRN (03:30)
[2024-02-21] MEDS: CLINDAMYCIN PHOSPHATE IV 900 MG in IV DEXTROSE 5% 100 ML IV ONE (03:30)
[2024-02-21] MEDS ORDERED: ONDANSETRON 4 MG/2 ML VIAL IV PRN (03:30)
[2024-02-21] MEDS ORDERED: ACETAMINOPHEN 325 MG TABLET PO PRN (03:30)
[2024-02-21] MEDS ORDERED: LIDOCAINE VISCUS 2% 15 ML UDC ONE (03:58)
[2024-02-21] MEDS ORDERED: MAGNESIUM SULFATE/D5W 100 ML ONE (04:24)
[2024-02-21] MEDS ORDERED: HYDROMORPHONE 1 MG/1 ML DISP.SYRIN ONE (04:24)
[2024-02-21] MEDS: HYDROMORPHONE 1 MG/1 ML DISP.SYRIN IV ONE (04:25)
[2024-02-21] MEDS: MAGNESIUM SULFATE 1 GM in IV DEXTROSE 5% 50 ML IV ONE (04:26)
[2024-02-21] MEDS ORDERED: OXYMETAZOLINE NASAL 0.05% 15 ML SPRAY NS ONE (04:40)
[2024-02-21] MEDS ORDERED: TRANEXAMIC ACID 1,000 MG/10 ML VIAL ONE (04:40)
[2024-02-21] MEDS: TRANEXAMIC ACID 1,000 MG/10 ML VIAL IR ONE (04:49)
[2024-02-21] MEDS ORDERED: hydrALAZINE HCL 20 MG/1 ML VIAL ONE (05:00)
[2024-02-21] MEDS ORDERED: hydrALAZINE HCL 20 MG/1 ML VIAL IV ONE (05:00)
[2024-02-21 05:03] LABS: EOSINOPHILS # (AUTO) 0.5 K/uL (0.0-0.7); LYMPHOCYTES # (AUTO) 2.3 K/uL (0.8-4.8)
[2024-02-21 05:05] LABS: EOSINOPHILS % (AUTO) 1.4 % (0.0-7.0); HEMATOCRIT 24.8 % (36.7-47.1); LYMPHOCYTES % (AUTO) 7.3 % (20.5-51.5); MEAN CORPUSCULAR HEMOGLOBIN 29.1 uug (23.8-33.4); MEAN CORPUSCULAR HGB CONC 32 g/dL (32.5-36.3); MEAN CORPUSCULAR VOLUME 90.2 fL (73.0-96.2); MONOCYTES # (AUTO) 10.9 K/uL (0.1-1.30); MONOCYTES % (AUTO) 34.6 % (0.0-11.0); NEUTROPHILS # (AUTO) 16.9 K/uL (1.8-8.9); NEUTROPHILS % (AUTO) 53.7 % (38.5-71.5); PLATELET COUNT (AUTO) 87 K/uL (152-348); RED BLOOD CELL COUNT(AUTO) 2.75 MIL/uL (4.06-5.63); RED CELL DISTRIBUTION WIDTH 21.4 % (12.1-16.2)
[2024-02-21 05:21] LABS: WHITE BLOOD COUNT (AUTO) 31.5 K/uL (3.6-10.2)
[2024-02-21 05:29] LABS: ALBUMIN 2.8 g/dL (3.4-5.0); CALCIUM 8.2 mg/dL (8.5-10.1); CARBON DIOXIDE 23 mmol/L (21-32); CHLORIDE 100 mmol/L (98-107); CREATININE 7.4 mg/dL (0.6-1.3); GLUCOSE 107 mg/dL (74-106); MAGNESIUM 2.2 mg/dL (1.8-2.4); PHOSPHOROUS 6.6 mg/dL (2.5-4.9); POTASSIUM 4.9 mmol/L (3.5-5.1); SODIUM SERUM 132 mmol/L (136-145); UREA NITROGEN, BLOOD 64 mg/dL (7-18)
[2024-02-21 05:30] LABS: NEUTROPHILS % (MANUAL) 0 % (42-75)
[2024-02-21] MEDS ORDERED: DULO40CA2 PO (05:37)
[2024-02-21] MEDS ORDERED: TRIA60LO7 TOP (05:37)
[2024-02-21] MEDS ORDERED: FORM20VI4 (05:37)
[2024-02-21] MEDS ORDERED: APIX2.5T PO (05:37)
[2024-02-21] MEDS ORDERED: TEST75GE10 TP (05:37)
[2024-02-21] MEDS ORDERED: MIDO2.5T PO (05:37)
[2024-02-21] MEDS ORDERED: TAMS-3 PO (05:37)
[2024-02-21 07:00] VITALS: BP 139/67; TEMP 97.4; O2SAT 99
[2024-02-21 10:26] VITALS: BP 134/83; TEMP 97.3; O2SAT 94
[2024-02-21] MEDS: CLINDAMYCIN PHOSPHATE IV 900 MG in IV DEXTROSE 5% 50 ML IV SCH (10:42)
[2024-02-21 11:00] VITALS: BP 143/80; TEMP 98.5; O2SAT 100
[2024-02-21] MEDS ORDERED: ONDA8TAB13 PO (11:45)
[2024-02-21] MEDS ORDERED: HYDR-4209 PO (11:45)
[2024-02-21] MEDS ORDERED: ZOLP10TA2 PO (11:45)
[2024-02-21] MEDS ORDERED: MIDO5TAB5 PO (11:45)
[2024-02-21] MEDS: ALPRAZOLAM 0.5 MG TABLET PO PRN (12:06)
[2024-02-21] MEDS: HYDROMORPHONE 1 MG/1 ML DISP.SYRIN IV PRN (12:59)
[2024-02-21] MEDS ORDERED: METOCLOPRAMIDE HCL 10 MG TABLET PO PRN (14:00)
[2024-02-21] MEDS ORDERED: Medication Not On Formulary EA (Zolpidem Tartrate (Ambien) 10 MG) PO PRN (14:00)
[2024-02-21] MEDS: ALLOPURINOL 100 MG TABLET PO SCH (14:43)
[2024-02-21] MEDS: ATENOLOL 50 MG TABLET PO SCH (14:44)
[2024-02-21] MEDS: PANTOPRAZOLE SODIUM 40 MG TABLET.DR PO SCH (14:45)
[2024-02-21] MEDS: DULOXETINE 30 MG CAPSULE.DR PO SCH (14:46)
[2024-02-21] MEDS: DULOXETINE 60 MG CAPSULE.DR PO SCH (14:46)
[2024-02-21 14:55] VITALS: BP 137/78; TEMP 97.9; O2SAT 98
[2024-02-21] MEDS: buPROPion XL 150 MG TAB.SR.24H PO SCH (15:05)
[2024-02-21] MEDS ORDERED: ZOLPIDEM 5 MG TABLET PO PRN (15:15)
[2024-02-21] MEDS: HYDROCODONE/APAP 5-325MG TABLET PO PRN (15:19)
[2024-02-21] MEDS ORDERED: FLUTICASONE/SALMETEROL 250/50 INHALER IH SCH (17:00)
[2024-02-21] MEDS: FLUTICASONE/VILANTEROL 1 EACH BLST.W.DEV INH SCH (17:00)
[2024-02-21] MEDS ORDERED: ATORVASTATIN 20 MG TABLET PO SCH (21:00)
[2024-02-22] MEDS ORDERED: Medication Not On Formulary EA (Tadalafil (Cialis) 5 MG) PO SCH (09:00)
== END 2024-02-21 19:30 | disposition home or self-care (01) | DRG 150 ==
LOC: ER 23:40 → MEDSURG3 02-21 03:25
PROVIDERS: ADMIT Nurse Practitioner Family; ATTEND Internal Medicine
PROC: 093K7ZZ Control Bleeding in Nasal Mucosa and Soft Tissue, Via Natural or Artificial Opening (ICD-10-PCS; principal; 2024-02-21)
PROC: 5A1D70Z Performance of Urinary Filtration, Intermittent, Less than 6 Hours Per Day (ICD-10-PCS; 2024-02-21)
DX: R04.0 Epistaxis (principal); N18.6 End stage renal disease; D68.32 Hemorrhagic disorder due to extrinsic circulating anticoagulants; D75.81 Myelofibrosis; E44.0 Moderate protein-calorie malnutrition; I12.0 Hypertensive chronic kidney disease with stage 5 chronic kidney disease or end stage renal disease; T45.515A Adverse effect of anticoagulants, initial encounter; Z99.2 Dependence on renal dialysis; D50.0 Iron deficiency anemia secondary to blood loss (chronic); D63.1 Anemia in chronic kidney disease; I95.89 Other hypotension; E78.5 Hyperlipidemia, unspecified; E66.9 Obesity, unspecified; Y92.89 Other specified places as the place of occurrence of the external cause; I48.0 Paroxysmal atrial fibrillation; L30.9 Dermatitis, unspecified; I25.10 Atherosclerotic heart disease of native coronary artery without angina pectoris; F32.A Depression, unspecified; F41.9 Anxiety disorder, unspecified; Z79.899 Other long term (current) drug therapy; Z79.01 Long term (current) use of anticoagulants; Z88.0 Allergy status to penicillin; Z68.33 Body mass index [BMI] 33.0-33.9, adult; Z87.891 Personal history of nicotine dependence; Z88.2 Allergy status to sulfonamides; Z88.3 Allergy status to other anti-infective agents; Z79.51 Long term (current) use of inhaled steroids; M70.72 Other bursitis of hip, left hip; M70.71 Other bursitis of hip, right hip
CPT/HCPCS: 36415; 70030-TC; 83735; 84100; 85025; 85730; 86850; 86900; 86901; 90937; G0378; J0360; J1170; J3475; J3490; J7040; J8499

== ENCOUNTER 2024-06-11 12:15 | Emergency (ER) | payer MEDICARE, BC ==
[~2024-06-11] VITALS: Ht 182.9 cm; Wt 86.2 kg
[~2024-06-11 12:15] MED LIST changes: -CAND16TA25 PO; +HYDR-4209 PO; -HYDR500C PO; +MIDO5TAB5 PO; +ONDA8TAB13 PO; +ZOLP10TA2 PO
[2024-06-11] MEDS: IV NORMAL SALINE 1000 ML BAG IV ONE (12:51)
[2024-06-11 13:07] LABS: BASOPHILS # (AUTO) 0.6 K/UL (0.0-0.2); BASOPHILS % (AUTO) 0.8 % (0.0-2.0); CARBON DIOXIDE 18 mmol/L (21-32); CHLORIDE 101 mmol/L (98-107); CREATININE 5.9 mg/dL (0.6-1.3); EOSINOPHILS # (AUTO) 0.6 K/uL (0.0-0.7); EOSINOPHILS % (AUTO) 0.9 % (0.0-7.0); HEMATOCRIT 23.4 % (36.7-47.1); LYMPHOCYTES # (AUTO) 5.6 K/uL (0.8-4.8); LYMPHOCYTES % (AUTO) 7.5 % (20.5-51.5); MEAN CORPUSCULAR HEMOGLOBIN 27.2 uug (23.8-33.4); MEAN CORPUSCULAR HGB CONC 31 g/dL (32.5-36.3); MEAN CORPUSCULAR VOLUME 87.6 fL (73.0-96.2); MONOCYTES # (AUTO) 21.7 K/uL (0.1-1.30); MONOCYTES % (AUTO) 29.3 % (0.0-11.0); NEUTROPHILS # (AUTO) 45.6 K/uL (1.8-8.9); NEUTROPHILS % (AUTO) 61.5 % (38.5-71.5); PLATELET COUNT (AUTO) 136 K/uL (152-348); RED BLOOD CELL COUNT(AUTO) 2.67 MIL/uL (4.06-5.63); RED CELL DISTRIBUTION WIDTH 17.6 % (12.1-16.2); SODIUM SERUM 132 mmol/L (136-145); UREA NITROGEN, BLOOD 65 mg/dL (7-18)
[2024-06-11 13:10] LABS: GLUCOSE 46 mg/dL (74-106)
[2024-06-11 13:16] LABS: ALANINE AMINOTRANSFERASE 12 U/L (16-63); ALBUMIN 2.6 g/dL (3.4-5.0); ALKALINE PHOSPHATASE 94 U/L (50-136); ASPARTATE AMINOTRANSFERASE 12 U/L (15-37); BILIRUBIN,DIRECT 0.3 mg/dL (0.0-0.2); BILIRUBIN,TOTAL 0.9 mg/dL (0.2-1.0); TOTAL PROTEIN, SERUM 8.9 g/dL (6.4-8.2)
[2024-06-11 13:17] LABS: ABG BASE EXCESS -9.1 mmol/L (-2.0-3.0); ABG HCO3 14.6 mmol/L (21.0-28.0); ABG PCO2 24.2 mmHg (35.0-48.0); ABG PH 7.399 (7.350-7.450); ABG PO2 112.2 mmHg (83.0-108.0); ABG SITE RIGHT RADIAL; ABG TOTAL HEMOGLOBIN 7.9 G/dL (13.5-17.5); AaDO2 98.2 mmHg; COHb 0.3 % (0.5-1.5); MetHb 0.3 % (0.0-1.5); O2Hb 97.7 % (94.0-98.0)
[2024-06-11 13:19] LABS: DIFFERENTIAL COMMENT 1; HEMOGLOBIN 7.3 g/dL (12.5-16.3); WHITE BLOOD COUNT (AUTO) 74.2 K/uL (3.6-10.2)
[2024-06-11 13:43] LABS: LACTIC ACID 3.1 mmol/L (0.4-2.0)
[2024-06-11] MEDS ORDERED: DEXTROSE 50% 50 ML DISP.SYRIN ONE ×2 (13:51→15:48)
[2024-06-11 14:06] LABS: EOSINOPHILS % (MANUAL) 1 % (0-8); LYMPHOCYTES % (MANUAL) 13 % (20-40); METAMYELOCYTES % 5 % (0-1); MONOCYTES % (MANUAL) 23 % (2-10); NEUTROPHILS % (MANUAL) 55 % (42-75); PLATELET ESTIMATE DECREASED
[2024-06-11] MEDS: DEXTROSE 50% 50 ML DISP.SYRIN IV ONE ×2 (14:06→16:00)
[2024-06-11 14:07] LABS: ANISOCYTOSIS 1+
[2024-06-11] MEDS ORDERED: CEFEPIME HCL 1 G VIAL ONE (14:09)
[2024-06-11] MEDS: CEFEPIME HCL 2 G in IV DEXTROSE 5% 100 ML IV ONE (14:25)
[2024-06-11] MEDS ORDERED: EPINEPHRINE 1:10,000 1 MG/10 ML DISP.SYRIN ONE (15:00)
[2024-06-11 15:25] VITALS: O2SAT 92
[2024-06-11 15:42] LABS: *BILIRUBIN,URIN NEGATIVE (NEGATIVE); *BLOOD, URINE 1+ (NEGATIVE); *CLARITY,URINE CLEAR (CLEAR); *COLOR,URINE YELLOW (YELLOW); *KETONES,URINE NEGATIVE (NEGATIVE); *PROTEIN,URINE 2+ (NEGATIVE); *UROBILINOGEN,URINE 0.2 E.U./dl (NORMAL); LEUKOCYTE ESTERASE ,URINE NEGATIVE (NEGATIVE); NITRITE, URINE NEGATIVE (NEGATIVE); UGLUCOSE NEGATIVE (NEGATIVE)
[2024-06-11] MEDS: BLOOD SUGAR DIAGNOSTIC 1 EACH STRIP VI SCH (15:45)
[2024-06-11] MEDS ORDERED: NOREPINEPHRINE 8MG/NS 250ML 250 ML IV ONE (15:45)
[2024-06-11 15:52] LABS: BACTERIA,URINE FEW /HPF (NONE SEEN); SQUAMOUS EPITHELIAL CELL,UR FEW /HPF (NONE SEEN); WBC,URINE 0-3 /HPF (0-3)
[2024-06-11 16:00] VITALS: O2SAT 62
[2024-06-11] MEDS ORDERED: DEXTROSE 50% 50 ML DISP.SYRIN IV PRN (16:00)
[2024-06-11] MEDS ORDERED: INSULIN REGULAR, HUMAN 1000 UNIT/10 ML VIAL SQ PRN (16:00)
[2024-06-11] MEDS ORDERED: NOREPINEPHRINE BITARTRATE 32 MG in IV NORMAL SALINE 218 ML IV PRN (16:00)
[2024-06-11 16:24] VITALS: BP 68/40
[2024-06-11] MEDS: NOREPINEPHRINE 8MG/NS 250ML 250 ML IV PRN (16:24)
[2024-06-11] MEDS: IV NS 1000 ML 1,000 ML IV ONE (17:34)
== END 2024-06-11 17:32 ==
LOC: ER 12:15 → CCU 15:17 → UNDOADMIN 15:17
DX: E16.2 Hypoglycemia, unspecified (principal); D75.81 Myelofibrosis; J18.9 Pneumonia, unspecified organism; D64.9 Anemia, unspecified; E78.5 Hyperlipidemia, unspecified; F32.A Depression, unspecified; I95.9 Hypotension, unspecified; F41.9 Anxiety disorder, unspecified; R51.9 Headache, unspecified; I25.10 Atherosclerotic heart disease of native coronary artery without angina pectoris; N18.6 End stage renal disease; Z79.51 Long term (current) use of inhaled steroids; Z79.899 Other long term (current) drug therapy; Z99.2 Dependence on renal dialysis; Z87.891 Personal history of nicotine dependence; Z88.0 Allergy status to penicillin; Z88.1 Allergy status to other antibiotic agents; Z88.2 Allergy status to sulfonamides
CPT/HCPCS: 99291; 31500; 96365; 70450; 96361; 71045; 96375; 87081; 80076; 80048; 81001; 82962; 85025; 87186; 87077; 84484; 36415; 83605 ×2; 93005; 36600; 87040; 85007; 92950; J0692 ×2; J3490; J0171; J7040 ×2; 70030-TC; A4606; A4663